=== PATIENT | male | born 1995 | race Two or more races ===

== ENCOUNTER 2020-08-16 03:20 | Observation (INO) | payer SELFPAY ==
[2020-08-16] MEDS ORDERED: MORPHINE SULFATE 10 MG/ML INJ IV ONE ×2 (08:53→10:56)
[2020-08-16] MEDS ORDERED: ONDANSETRON HCL INJ/PF 4 MG/2 ML SDV IV ONE (08:54)
[2020-08-16] MEDS ORDERED: NORMAL SALINE 1000 ML 1,000 ML IV ONE (08:54)
--- NOTE | 2020-08-16 08:56 | ER Document Report ---
ED GI/ - General Chief Complaint: Abdominal Pain Stated Complaint: VOMITING,NAUSEA,BODY PAIN Time Seen by Provider: 08/16/20 08:49 Notes: Patient is a 25-year-old male who comes to the emergency department for chief complaint of right upper abdominal pain (he points). He states he started having sharp pains last night in the area and they would not go away, he states that he made himself vomit to see if it would help but his pain persisted afterwards. He denies flank pain, lower abdominal pain, chest pain, fever, difficulty breathing, or any other complaints. He denies history of the same. He denies any abdominal surgeries. He denies any daily medications. He admits to daily alcohol use but denies history of alcohol withdrawals. He denies history of pancreatitis. He denies smoking or recreational drugs. - Related Data Allergies/Adverse Reactions: No Known Allergies Allergy (Unverified 08/16/20 15:10) Past Medical History - General Information source: Patient - Social History Smoking Status: Current Every Day Smoker Frequency of alcohol use: Heavy Drug Abuse: None Lives with: Alone Family History: Reviewed & Not Pertinent - Immunizations Immunizations up to date: Yes Hx Diphtheria, Pertussis, Tetanus Vaccination: Yes Review of Systems - Review of Systems Constitutional: No symptoms reported EENT: No symptoms reported Cardiovascular: No symptoms reported Respiratory: No symptoms reported Gastrointestinal: See HPI Genitourinary: No symptoms reported Male Genitourinary: No symptoms reported Musculoskeletal: No symptoms reported Skin: No symptoms reported Hematologic/Lymphatic: No symptoms reported Neurological/Psychological: No symptoms reported Physical Exam - Vital signs Vitals: Temp Pulse Resp BP Pulse Ox 97.3 F 82 28 H 142/104 H 100 08/16/20 03:35 08/16/20 03:35 08/16/20 03:35 08/16/20 03:35 08/16/20 03:35 - Notes Notes: GENERAL: Alert, interactive, but appears to be in pain in moderate distress HEAD: Normocephalic, atraumatic. EYES: Pupils equal, round, and reactive to light. Extraocular movements intact. ENT: Oral mucosa moist, tongue midline. Oropharynx unremarkable. Airway patent. NECK: Full range of motion. Supple. Trachea midline. No lymphadenopathy. LUNGS: Clear to auscultation bilaterally, no wheezes, rales, or rhonchi. No respiratory distress. Non-tender chest wall. HEART: Regular rate and rhythm. No murmur ABDOMEN: Specific right upper quadrant pain with positive Ngo sign and guarding. Epigastric mildly tender, remaining abdomen soft and benign. Bowel sounds present throughout. EXTREMITIES: Moves all 4 extremities spontaneously. No edema, normal radial and dorsalis pedis pulses bilaterally. No cyanosis. BACK: no cervical, thoracic, lumbar midline tenderness. No saddle anesthesia, normal distal neurovascular exam. Moves all extremities in full range of motion. NEUROLOGICAL: Alert and oriented x3. Normal speech. Cranial nerves II through XII grossly intact. Strength 5/5 in all extremities. PSYCH: Normal affect, normal mood. SKIN: Warm, dry, normal turgor. No rashes or lesions noted. Course - Re-evaluation Re-evalutation: Patient curled up into a ball initially, on evaluation he had a significant right upper quadrant tenderness with positive Ngo sign. Remaining physical exam completely unremarkable. Patient will be kept n.p.o., medicating, work-up pending. CBC shows leukocytosis at 13,000 with elevation of neutrophils and 1% bands. Chemistry unremarkable, lipase unremarkable. Alcohol negative. Right upper quadrant ultrasound performed and per radiology is acute cholecystitis. Patient started on Zosyn, given IV fluids, patient will be tested for COVID-[address] Wright, he will evaluate the patient. Patient accepted to the surgical service pending the operating room. - Vital Signs Vital signs: Temp Pulse Resp BP Pulse Ox 97 F L 78 16 127/75 H 96 08/16/20 16:57 08/16/20 16:57 08/16/20 16:57 08/16/20 16:57 08/16/20 16:57 - Laboratory Results Result Diagrams: 08/16/20 09:35 08/16/20 09:35 Laboratory Results Interpreted: 08/16/20 08/16/20 09:35 09:35 WBC 12.8 H Seg Neuts % (Manual) 92 H Band Neutrophils % 1 L Lymphocytes % (Manual) 4 L Monocytes % (Manual) 1 L Abs Neuts (Manual) 11.9 H Glucose 126 H Total Protein 8.8 H Albumin 5.1 H Critical Laboratory Results Reviewed: No Critical Results - Radiology Results Critical Radiology Results Reviewed: Yes Attending or Supervising Physician who Reviewed Radiology: KALEB WALKER Discharge - Discharge Clinical Impression: Acute cholecystitis, Symptomatic cholelithiasis Condition: Stable Disposition: ADMITTED OBSERVATION Admitting Provider: Surgicalist Unit Admitted: Surgical Floor
[2020-08-16 09:51] LABS: HEMOGLOBIN 14.9 g/dL (13.5-17.0); MEAN CORPUSCULAR HEMOGLOBIN 31.2 pg (27.0-33.4); MEAN CORPUSCULAR HGB CONC 35.4 g/dL (32.0-36.0); MEAN CORPUSCULAR VOLUME 88 fl (80-97); PLATELET COUNT 301 10^3/uL (150-450); RED BLOOD COUNT 4.76 10^6/uL (4.35-5.55); WHITE BLOOD COUNT 12.8 10^3/uL (4.0-10.5)
[2020-08-16 10:10] LABS: ALBUMIN 5.1 g/dL (3.5-5.0); ALKALINE PHOSPHATASE 76 U/L (38-126); ANION GAP 10 (5-19); ASPARTATE AMINO TRANSFERASE 30 U/L (17-59); BILIRUBIN,DIRECT 0.3 mg/dL (0.0-0.4); BILIRUBIN,TOTAL 0.5 mg/dL (0.2-1.3); BLOOD UREA NITROGEN 13 mg/dL (7-20); CALCIUM 9.8 mg/dL (8.4-10.2); CARBON DIOXIDE 28 mmol/L (22-30); CHLORIDE 100 mmol/L (98-107); GLUCOSE 126 mg/dL (75-110); POTASSIUM 4.6 mmol/L (3.6-5.0); TOTAL PROTEIN 8.8 g/dL (6.3-8.2)
[2020-08-16 10:11] LABS: ALCOHOL < 10 mg/dL (NONE DETECTED)
[2020-08-16 10:21] LABS: ABSOLUTE LYMPHOCYTES# (MANUAL) 0.8 10^3/uL (0.5-4.7); ABSOLUTE MONOCYTES # (MANUAL) 0.1 10^3/uL (0.1-1.4); BAND NEUTROPHILS % (MANUAL) 1 % (3-5); BASOPHILS % (MANUAL) 0 % (0-2); EOSINOPHILS % (MANUAL) 0 % (0-6); LYMPHOCYTES % (MANUAL) 4 % (13-45); MONOCYTES % (MANUAL) 1 % (3-13); SEGMENTED NEUTROPHILS % (MAN) 92 % (42-78); TOTAL CELLS COUNTED 100
[2020-08-16 10:22] LABS: PLATELET CLUMPS PRESENT; PLATELET COMMENT ADEQUATE; RBC MORPHOLOGY COMMENT NORMO-CYTIC/CHROMIC
--- NOTE | 2020-08-16 10:44 | RADIOLOGY REPORT (SQ) ---
EXAM DESCRIPTION: U/S ABDOMEN LIMITED W/O DOP IMAGES COMPLETED DATE/TIME: 08/16/2020 10:27 am REASON FOR STUDY: RUQ and epigastric pain, vomiting COMPARISON: None. TECHNIQUE: Dynamic and static grayscale images acquired of the abdomen and recorded on PACS. Wendio luz elena selected color Doppler and spectral images recorded. LIMITATIONS: None. FINDINGS: PANCREAS: No masses. Visualized pancreatic duct normal caliber. LIVER: No masses. Echotexture normal. LIVER VASCULATURE: Normal directional flow of the main portal vein and hepatic veins. GALLBLADDER: Gallstones. Gallbladder wall thickening. Probable pericholecystic edema. There is slu dge as well. ULTRASOUND-DETECTED NGO'S SIGN: Positive. INTRAHEPATIC DUCTS AND COMMON DUCT: CBD and intrahepatic ducts normal caliber. No filling defects. AORTA: No aneurysm. RIGHT KIDNEY: Normal size. Normal echogenicity. No solid or suspicious masses. No hydronephrosis. No calcifications. PERITONEAL AND RIGHT PLEURAL SPACE: No ascites or effusions. OTHER: No other significant findings. IMPRESSION: Gallstones and sludge. Thickened gallbladder wall with positive sonographic Ngo's si gn. Findings are consistent with acute cholecystitis. TECHNICAL DOCUMENTATION: JOB ID: [id number] 2010 [employer]- All Rights Reserved Reading location - IP/workstation name: [email or web address]
[2020-08-16] MEDS ORDERED: NORMAL SALINE 1000 ML 1,000 ML IV PRN ×2 (10:56→12:08)
[2020-08-16] MEDS ORDERED: PIPERACILLIN/TAZOBACTAM 3.375 GM VIAL IV ONE (10:56)
[2020-08-16] MEDS ORDERED: METOCLOPRAMIDE HCL INJ/PF 10 MG/2 ML SDV ONE (12:13)
[2020-08-16] MEDS ORDERED: ONDANSETRON HCL INJ/PF 4 MG/2 ML SDV ONE (12:13)
[2020-08-16] MEDS ORDERED: DIPHENHYDRAMINE HCL 50 MG/ML VIAL ONE (12:13)
[2020-08-16] MEDS ORDERED: ROCURONIUM BROMIDE INJ 50 MG/5 ML VIAL IV ONE (12:13)
[2020-08-16] MEDS ORDERED: DEXAMETHASONE SOD PHOSPHATE INJ 4 MG/1 ML VIAL ONE (12:13)
[2020-08-16] MEDS ORDERED: KETOROLAC TROMETHAMINE 60 MG/2 ML SDV ONE (12:13)
[2020-08-16] MEDS ORDERED: SUCCINYLCHOLINE CHLORIDE INJ 200 MG/10 ML VIAL ONE (12:13)
--- NOTE | 2020-08-16 12:14 | PDOC H&P ---
History of Present Illness Admission Date/PCP: NO LOCALMD Patient complains of: Abdominal pain History of Present Illness: GAGE BAZZI is a 25 year old male Presents to the emergency department via ground rescue complaining of abdominal pain x2 days, nausea vomiting, and anorexia. This is his second episode in 2 weeks. Is seen in the emergency department where he is found to have right upper quadrant tenderness, leukocytosis, and a gallbladder ultrasound demonstrating gallstones with gallbladder wall thickening consistent with pericholecystitis. Surgery was consulted, patient was advised admission for definitive management. Patient denies history of previous abdominal problems, GI diagnoses, family history of gallbladder disease and trauma Past Medical History Past Medical History: Alcohol abuse Past Surgical History Past Surgical History: Reports: None Social History Smoking Status: Current Every Day Smoker Frequency of Alcohol Use: Heavy Hx Recreational Drug Use: No Hx Prescription Drug Abuse: No Family History Family History: None Parental Family History Reviewed: No Children Family History Reviewed: No Sibling(s) Family History Reviewed.: No Medication/Allergy Home Medications: No Home Medications 08/16/20 Review of Systems Constitutional: PRESENT: as per HPI Eyes: ABSENT: visual disturbances Ears: ABSENT: hearing changes Cardiovascular: ABSENT: chest pain, dyspnea on exertion, edema, orthropnea, palpitations Respiratory: ABSENT: cough, hemoptysis Gastrointestinal: PRESENT: as per HPI Genitourinary: ABSENT: dysuria, hematuria Musculoskeletal: ABSENT: joint swelling Neurological: ABSENT: abnormal gait, abnormal speech, confusion, dizziness, focal weakness, syncope Endocrine: ABSENT: cold intolerance, heat intolerance, polydipsia, polyuria Hematologic/Lymphatic: ABSENT: easy bleeding, easy bruising Physical Exam Vital Signs: Temp Pulse Resp BP Pulse Ox 97.9 F 102 H 16 106/68 100 08/16/20 10:24 08/16/20 10:24 08/16/20 10:24 08/16/20 10:24 08/16/20 10:24 Intake & Output 08/15/20 08/16/20 08/17/20 06:59 06:59 06:59 Intake Total 1000 Balance 1000 Weight 81.2 kg General appearance: PRESENT: no acute distress Head exam: PRESENT: normocephalic Eye exam: PRESENT: EOMI Mouth exam: PRESENT: dry mucosa Neck exam: PRESENT: full ROM Respiratory exam: PRESENT: clear to auscultation dennis Cardiovascular exam: PRESENT: RRR Pulses: PRESENT: normal carotid pulses, normal radial pulses, normal femoral pulses, normal dorsalis pedis pul GI/Abdominal exam: PRESENT: soft - Tender right upper quadrant with guarding Rectal exam: PRESENT: deferred Musculoskeletal exam: PRESENT: full ROM Neurological exam: PRESENT: oriented to person, oriented to place, oriented to time, oriented to situation Psychiatric exam: PRESENT: appropriate affect Skin exam: PRESENT: dry Results Laboratory Results: 08/16/20 09:35 08/16/20 09:35 08/16/20 08/16/20 09:35 09:35 WBC 12.8 H RBC 4.76 Hgb 14.9 Hct 42.0 MCV 88 MCH 31.2 MCHC 35.4 RDW 13.0 Plt Count 301 Seg Neutrophils % Not Reportable Sodium 138.4 Potassium 4.6 Chloride 100 Carbon Dioxide 28 Anion Gap 10 BUN 13 Creatinine 0.71 Est GFR ( Amer) > 60 Glucose 126 H Calcium 9.8 Total Bilirubin 0.5 AST 30 Alkaline Phosphatase 76 Total Protein 8.8 H Albumin 5.1 H Lipase 128.7 Impressions: Abdomen Ultrasound 08/16/20 08:54 IMPRESSION: Gallstones and sludge. Thickened gallbladder wall with positive sonographic Ngo's sign. Findings are consistent with acute cholecystitis. Assessment & Plan - Diagnosis (1) Symptomatic cholelithiasis Is this a current diagnosis for this admission?: Yes Plan: Impression: Acute cholecystitis, with cholelithiasis in 25-year-old male with history of alcohol abuse. Recommendations: 1. Admit, IV fluids, IV antibiotics, rapid Covid test. 2. Take patient to operating room for interval laparoscopic, possible open cholecystectomy, 1 hour, general anesthesia, possible drain; risk benefits and alternatives to the planned procedure explained to the patient including bleeding, infection, bile duct leak, and retained common bile duct stone. Patient expresses understanding and agrees to proceed. (2) Acute cholecystitis Is this a current diagnosis for this admission?: Yes (3) Alcohol abuse Is this a current diagnosis for this admission?: Yes - Time Time Spent: 30 to 50 Minutes Critical Time spent with patient: Less than 15 minutes Smoking Cessation Education: 3 to 10 minutes Anticipated Discharge Disposition: Home, Self Care Anticipated Discharge Timeframe: within 24 hours
[2020-08-16] MEDS ORDERED: FENTANYL CITRATE INJ/PF 250 MCG/5 ML AMPULE ONE (12:17)
[2020-08-16] MEDS ORDERED: SUGAMMADEX SODIUM 200 MG/2 ML SDV IV ONE (12:17)
[2020-08-16] MEDS ORDERED: EPHEDRINE SULFATE INJ 50 MG/1 ML AMPULE ONE (12:17)
[2020-08-16] MEDS ORDERED: MIDAZOLAM 2 MG/2 ML INJ ONE (12:17)
[2020-08-16] MEDS ORDERED: MORPHINE SULFATE 10 MG/ML INJ ONE (12:17)
[2020-08-16] MEDS ORDERED: PROPOFOL INJ 200 MG/20 ML VIAL IV ONE (12:18)
[2020-08-16] MEDS ORDERED: BUPIVACAINE HCL 0.25 % INJ/PF (2.5 MG/1 ML) 30 ML VIAL ONE (12:54)
[2020-08-16] MEDS ORDERED: PIPERACILLIN SODIUM/TAZOBACTAM 3.375 GM in NORMAL SALINE 100 ML IV SCH (14:00)
[2020-08-16] MEDS ORDERED: MEPERIDINE HCL/PF INJ 25 MG/1 ML DISP.SYRIN IV PRN (14:27)
[2020-08-16] MEDS ORDERED: OXYCODONE-ACETAMINOPHEN 5-325 MG TABLET PO PRN ×2 (14:27)
[2020-08-16] MEDS ORDERED: DIPHENHYDRAMINE HCL 50 MG/ML VIAL IV PRN (14:27)
[2020-08-16] MEDS ORDERED: MORPHINE SULFATE 10 MG/ML INJ IV PRN (14:27)
[2020-08-16] MEDS ORDERED: FENTANYL CITRATE INJ/PF 100 MCG/2 ML AMPUL IV PRN ×3 (14:27)
[2020-08-16] MEDS ORDERED: PROMETHAZINE HCL INJ 25 MG/1 ML VIAL IV PRN ×2 (14:27)
--- NOTE | 2020-08-16 14:53 | Operative Report ---
Operative Report DATE OF SURGERY: 08/16/20 PREOPERATIVE DIAGNOSIS: Acute cholecystitis with cholelithiasis POSTOPERATIVE DIAGNOSIS: Same OPERATION: Laparoscopic cholecystectomy SURGEON: LINDA JAVED ANESTHESIA: GA TISSUE REMOVED OR ALTERED: 1 gallbladder with contents COMPLICATIONS: None ESTIMATED BLOOD LOSS: Scant INTRAOPERATIVE FINDINGS: See below PROCEDURE: She was taken the preop holding her to the main operating room where general anesthesia was induced. Arms were abducted, abdomen clipped of hair, then prepped and draped with chlorhexidine. Instrumentation was set up for laparoscopic cholecystectomy. Surgical plan and surgical timeout were conducted. Markings were made on the skin for for port laparoscopy. All sites were anesthetized 1% plain lidocaine. A supraumbilical vertical incision was made with a 15 blade, Veress needle inserted the peritoneal cavity, pneumoperitoneum established. Veress needle was removed, 5 mm port was inserted and a 5 mm viewing scope was inserted. Under direct visualization, 3 additional ports were placed one in the subxiphoid and 2 in the subcostal positions. Findings were significant for an acutely inflamed gallbladder with multiple adhesions between the gallbladder and the transverse colon. All of these adhesions were taken down using a combination of blunt and hook electrocautery dissection under excellent visualization. Eventually we able to position graspers on the gallbladder infundibulum and fundus and elevate the gallbladder up over the liver bed. Again this was an acutely inflamed gallbladder with significant edema, enlargement and thickened gallbladder wall. The neck of the gallbladder was dissected out in its entirety. The cystic artery was parallel to the cystic duct. Photos were taken. The cystic vein was cauterized. The triangle of Calot was opened widely and the critical view obtained. Additional photos were taken. We now got around the cystic artery with a right angle clamp, clipped the cystic artery 2 times proximally 1 time distally divided with scissors. The gallbladder was now suspended by its base, and the cystic duct. The cystic duct was cleared of any residual adhesions, clipped twice proximally, once distally then divided with scissors. The gallbladder was removed from the liver bed using hook cautery dissection. The gallbladder was taken out of the patient to the supraumbilical port site without stone spillage. The specimen was sent to pathology. We returned the peritoneal cavity check for bleeding and there was none. Sponge and needle counts are correct. Clips were in good position, and conclusion photos taken. We felt the operation was complete. Reinspection of the peritoneal cavity revealed no evidence of visceral or vascular injury. The patient remained hemodynamically stable. All ports removed, pneumoperitoneum evacuated, wounds closed with 0 Vicryl 3-0 Vicryl benzoin and Steri-Strips. Patient tolerated the procedure well, extubated, taken recovery in stable condition.
[2020-08-16] MEDS ORDERED: ONDANSETRON HCL INJ/PF 4 MG/2 ML SDV IV PRN (14:54)
[2020-08-16] MEDS ORDERED: KETOROLAC TROMETHAMINE INJ/PF 30 MG/1 ML SDV IV PRN (14:54)
[2020-08-16] MEDS ORDERED: OXYCODONE-ACETAMINOPHEN 5-325 MG TABLET ONE (15:37)
[2020-08-16] MEDS ORDERED: OXYCODONE-ACETAMINOPHEN 5-325 MG TABLET PO ONE (16:00)
[2020-08-16 16:26] VITALS: BP 127/75
== END 2020-08-16 17:55 | disposition home or self-care (01) ==
LOC: ER 03:20 → INTOOBSV 12:34 → EH 12:34
PROVIDERS: ATTEND Surgery
DX: K80.10 Calculus of gallbladder with chronic cholecystitis without obstruction (principal); F10.10 Alcohol abuse, uncomplicated; Z20.828 Contact with and (suspected) exposure to other viral communicable diseases; F17.210 Nicotine dependence, cigarettes, uncomplicated
CPT/HCPCS: 96376; 99285; 96361; 96375; 96365; 36415; 80307; 83690; 85025; 0241U ×4; 80053; 88304 ×2; 76705; 99140; 00790; 47562; J2250; J3490 ×2; J1100; J1200; J1885; J3010; J2765; J2270; J0330; J2405; J7030; J2704; J2543; C9803; 790